=== PATIENT | female | born 1955 | race Two or more races ===

== ENCOUNTER 2021-01-09 12:15 | Emergency (ER) | payer MEDICAID ==
[~2021-01-09] VITALS: Ht 157.5 cm; Wt 72.6 kg
[2021-01-09 12:28] VITALS: BP 110/70
[2021-01-09 12:30] VITALS: BP 144/87
[2021-01-09] MEDS ORDERED: Morphine Sulfate 4mg/ml Inj (IV USE ONLY) IVP ONE (12:45)
--- NOTE | 2021-01-09 12:49 | NUR ---
pt arrives to ER via [facility] with complaints of left shoulder injury secondary to falling from standing position. deformity noted upon arrival, pt is complaining of severe constant pain in upper left extremity. pt has full sensation with extremity able to move but painful. pt is AAOX4/ PT has history of htn and DMII. Provider at bedside.
--- NOTE | 2021-01-09 12:57 | Emergency Room Report ---
History of Present Illness General Chief Complaint: Multiple Trauma/Fall Source: Patient Present Illness HPI Patient presents with reports of trip and fall just prior to arrival patient was found on the sidewalk there was reported Patient reports that there was a bed with the [place] in the sidewalk. It has been there in the past and she has been able to avoid it however on this occasion the patient tripped and fell She denies any lapse of consciousness denies any chest pain or shortness of breath she has 10 out of 10 pain to the left shoulder Denies any back pain denies any pelvic pain Pain is worse with any touch or movement denies any midline upper or neck pain Allergies: Coded Allergies: No Known Allergies (Unverified , 01/09/21) COVID-19 Screening Contact w/high risk pt: No Experienced COVID-19 symptoms?: No COVID-19 Testing performed PIECER: No Patient History Past Medical History: see triage record Reviewed Nursing Documentation: PMH: Agreed; PSxH: Agreed Nursing Documentation-PMH Hx Cardiac Problems: No Hx Hypertension: Yes Hx Pacemaker: No Hx Asthma: No Hx Diabetes: Yes Hx Cancer: No Hx Gastrointestinal Problems: No Hx Dialysis: No History Of Psychiatric Problem: No Hx Neurological Problems: No Hx Cerebrovascular Accident: No Hx Seizures: No Review of Systems All Other Systems: negative except mentioned in HPI Physical Exam Vital Signs Date Time Temp Pulse Resp B/P (MAP) Pulse Ox O2 Delivery O2 Flow Rate FiO2 01/09/21 12:10 97.9 88 18 110/70 (83) 98 Room Air Sp02 EP Interpretation: reviewed, normal General Appearance: mild distress - In acute pain Head: normocephalic, atraumatic Eyes: bilateral eye PERRL, bilateral eye EOMI ENT: EOM grossly intact, normal pharynx Neck: supple Respiratory: lungs clear, no respiratory distress, no retraction Cardiovascular #1: regular rate, rhythm Gastrointestinal: non tender, soft Genitourinary: no CVA tenderness Musculoskeletal: other - Deformity is noted to the left upper arm, neurovascularly intact sensory intact 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 however has obvious deformity and is not able to raise the arm at the shoulder Neurologic: alert, oriented x3 - Neurovascularly intact in the upper extremity Psychiatric: normal inspection Skin: no rash Lymphatic: no adenopathy Procedures Splinting Splinting : Consent: Verbal Location: Left shoulder Pre-Made Type: velcro Hand-Made Type: Splint: Left shoulder immobilizer Pre-Proc Neuro Vasc Exam: normal Post-Proc Neuro Vasc Exam: normal Patient Tolerated: Well Complications: None Medical Decision Making Diagnostic Impression: Primary Impression: Shoulder fracture, left ER Course Given the history and presentation multiple differentials considered including but not limited to fracture, other soft tissue injuries patient had imaging done which does show Proximal humeral fracture This case was discussed with orthopedics Dr. Darinel De Paz who has reviewed the imaging Given the lack of any neurological deficits recommends close outpatient follow- up Feel that this is a complex fracture that will potentially require shoulder replacement Case is discussed with the patient explained to her the importance of close outpatient follow-up Patient is provided with outpatient clinics and referral Patient does not require emergency admission however does require urgent follow- up will return to the ER with any changes or concerns Labs Test 01/09/21 13:19 White Blood Count 12.9 K/UL (4.8-10.8) Red Blood Count 4.88 M/UL (4.20-5.40) Hemoglobin 14.0 G/DL (12.0-16.0) Hematocrit 44.2 % (37.0-47.0) Mean Corpuscular Volume 91 FL (80-99) Mean Corpuscular Hemoglobin 28.6 PG (27.0-31.0) Mean Corpuscular Hemoglobin Concent 31.6 G/DL (32.0-36.0) Red Cell Distribution Width 12.9 % (11.6-14.8) Platelet Count 217 K/UL (150-450) Mean Platelet Volume 7.2 FL (6.5-10.1) Neutrophils (%) (Auto) 79.3 % (45.0-75.0) Lymphocytes (%) (Auto) 13.9 % (20.0-45.0) Monocytes (%) (Auto) 5.4 % (1.0-10.0) Eosinophils (%) (Auto) 0.7 % (0.0-3.0) Basophils (%) (Auto) 0.8 % (0.0-2.0) Prothrombin Time 11.7 SEC (9.30-11.50) Prothromb Time International Ratio 1.1 (0.9-1.1) Activated Partial Thromboplast Time 25 SEC (23-33) Sodium Level 133 MMOL/L (136-145) Potassium Level 4.1 MMOL/L (3.5-5.1) Chloride Level 101 MMOL/L (98-107) Carbon Dioxide Level 27 MMOL/L (21-32) Anion Gap 5 mmol/L (5-15) Blood Urea Nitrogen 18 mg/dL (7-18) Creatinine 0.7 MG/DL (0.55-1.30) Estimat Glomerular Filtration Rate > 60 mL/min (>60) Glucose Level 185 MG/DL (74-106) Calcium Level 10.5 MG/DL (8.5-10.1) Total Bilirubin 0.5 MG/DL (0.2-1.0) Aspartate Amino Transf (AST/SGOT) 71 U/L (15-37) Alanine Aminotransferase (ALT/SGPT) 139 U/L (12-78) Alkaline Phosphatase 89 U/L (46-116) Total Protein 7.8 G/DL (6.4-8.2) Albumin 4.0 G/DL (3.4-5.0) Globulin 3.8 g/dL Albumin/Globulin Ratio 1.1 (1.0-2.7) EKG Diagnostic Results Rate: normal Rhythm: NSR ST Segments: no acute changes Other X-Ray Diagnostic Results Other X-Ray Diagnostic Results : X-Ray ordered: left Shoulder # of Views/Limited Vs Complete: 2 View Indication: Pain EP Interpretation: Yes Interpretation: other - Complex left proximal humeral fracture, displacement, no obvious foreign body Impression: Other - Complex comminuted left proximal humeral fracture with displacement Electronically Signed by: Mamta Davenport DO Last Vital Signs Date Time Temp Pulse Resp B/P (MAP) Pulse Ox O2 Delivery O2 Flow Rate FiO2 01/09/21 12:30 71 18 144/87 98 Room Air 01/09/21 12:28 97.9 Status: improved Disposition: HOME, SELF-CARE Condition: Improved Referrals: NON PHYSICIAN (PCP) Additional Instructions: Follow-up with primary doctor next 1 day. otherwise return to the er with any worsening symptoms. Please note that this report is being documented using [employer] technology. This can lead to erroneous entry secondary to incorrect interpretation by the dictating instrument. Mamta Davenprot DO Jan 09, 2021 12:57
[2021-01-09 13:35] LABS: BASOPHILS % (AUTO) 0.8 % (0.0-2.0); EOSINOPHILS % (AUTO) 0.7 % (0.0-3.0); HEMATOCRIT 44.2 % (37.0-47.0); LYMPHOCYTES % (AUTO) 13.9 % (20.0-45.0); MEAN CORPUSCULAR VOLUME 91 FL (80-99); MONOCYTES % (AUTO) 5.4 % (1.0-10.0); NEUTROPHILS % (AUTO) 79.3 % (45.0-75.0); PLATELET COUNT 217 K/UL (150-450); RED BLOOD COUNT 4.88 M/UL (4.20-5.40); RED CELL DISTRIBUTION WIDTH 12.9 % (11.6-14.8); WHITE BLOOD COUNT 12.9 K/UL (4.8-10.8)
[2021-01-09 13:51] LABS: ANION GAP 5 mmol/L (5-15); BLOOD UREA NITROGEN 18 mg/dL (7-18); CALCIUM 10.5 MG/DL (8.5-10.1); CARBON DIOXIDE 27 MMOL/L (21-32); CHLORIDE 101 MMOL/L (98-107); CREATININE 0.7 MG/DL (0.55-1.30); INR 1.1 (0.9-1.1); POTASSIUM 4.1 MMOL/L (3.5-5.1); SODIUM 133 MMOL/L (136-145)
[2021-01-09 13:55] LABS: ALANINE AMINOTRANSFERASE 139 U/L (12-78); ALBUMIN/GLOBULIN RATIO 1.1 (1.0-2.7); ALKALINE PHOSPHATASE 89 U/L (46-116); ASPARTATE AMINO TRANSFERASE 71 U/L (15-37); BILIRUBIN,TOTAL 0.5 MG/DL (0.2-1.0)
[2021-01-09] MEDS ORDERED: HYDROCODON-ACE1 EA19 PO (14:04)
[2021-01-09] MEDS ORDERED: IBUPROFEN600 M1 ORAL (14:04)
--- NOTE | 2021-01-09 14:17 | Diagnostic Imaging Report ---
Indication: Extreme pain after fall Technique: 2 views of the left shoulder Comparison: none Findings: There is a comminuted fracture of the left humeral head and neck. No dislocation. On one view, there is a lucency through the glenoid, which could represent a fracture as well although this could also be artifactual. Impression: Left humeral head and neck fracture Questionable glenoid fracture Findings discussed by phone with Dr. Davenport in the emergency room at the time of interpretation
[2021-01-09 14:46] VITALS: BP 144/87
== END 2021-01-09 14:47 | disposition home or self-care (01) ==
LOC: EDBD 12:15 → EMR 12:32
DX: S42.92XA Fracture of left shoulder girdle, part unspecified, initial encounter for closed fracture (principal); W01.0XXA Fall on same level from slipping, tripping and stumbling without subsequent striking against object, initial encounter; Y92.9 Unspecified place or not applicable; I10 Essential (primary) hypertension; E11.9 Type 2 diabetes mellitus without complications
CPT/HCPCS: 29105; 36415; 73020; 80053; 84484; 85025; 85610; 85730; 96374; 96375; J2270; J2405; Z7502; 99284